=== PATIENT | female | born 2000 | race Caucasian/White ===

== ENCOUNTER 2019-03-18 09:38 | Emergency (ER) | payer MEDICAID, OTHER ==
[~2019-03-18] VITALS: Ht 149.9 cm; Wt 41.9 kg
[~2019-03-18 09:38] MED LIST: NO HOME MEDS
[2019-03-18 12:20] VITALS: BP 127/89
== END 2019-03-18 12:16 | disposition home or self-care (01) ==
LOC: ER 09:39
DX: F41.9 Anxiety disorder, unspecified (principal); F32.9 Major depressive disorder, single episode, unspecified; F17.200 Nicotine dependence, unspecified, uncomplicated; F12.90 Cannabis use, unspecified, uncomplicated
CPT/HCPCS: 93005; 99284

== ENCOUNTER 2023-02-12 18:44 | Inpatient (IN) | payer MEDICAID, OTHER ==
[~2023-02-12] VITALS: Ht 149.9 cm; Wt 45.0 kg
[2023-02-12 22:45] LABS: BASOPHILS # (AUTO) 0.1 X10'3 (0-0.2); BASOPHILS % (AUTO) 0.7 % (0-1); EOSINOPHILS % (AUTO) 0.2 % (0-6); LYMPHOCYTES # (AUTO) 0.4 X10'3 (1.1-4.8); LYMPHOCYTES % (AUTO) 2.2 % (21-51); MEAN PLATELET VOLUME 8.2 FL (7.4-10.4); MONOCYTES # (AUTO) 1.1 X10'3 (0-0.9); MONOCYTES % (AUTO) 6.3 % (2-12); NEUTROPHILS # (AUTO) 16.5 X10'3 (1.8-7.7); NEUTROPHILS % (AUTO) 90.6 % (42-75); PLATELET COUNT 403 X10'3 (140-440); WHITE BLOOD COUNT 18.2 X10'3 (4.5-11.0)
[2023-02-12 22:55] LABS: ALANINE AMINOTRANSFERASE 61 U/L (12-78); ALBUMIN 5.2 G/DL (3.4-5.0); ALBUMIN/GLOBULIN RATIO 1.1 (1.1-1.5); ALKALINE PHOSPHATASE 62 IU/L (46-116); ANION GAP 28 (8-16); ASPARTATE AMINO TRANSFERASE 38 U/L (10-37); BILIRUBIN,TOTAL 1.3 MG/DL (0.1-1.0); BLOOD UREA NITROGEN 30 MG/DL (7-18); BUN/CREATININE RATIO 16.7 (10.0-20.0); CALCIUM 10.3 MG/DL (8.5-10.1); CHLORIDE 88 MMOL/L (99-107); GLUCOSE 251 MG/DL (70-104); LIPASE 204 U/L (16-77); POTASSIUM 4.1 MMOL/L (3.5-5.1); SODIUM 132 MMOL/L (135-145); TOTAL CARBON DIOXIDE 15.8 MMOL/L (24-32); eCRCL 33 ML/MIN; eGFR 35 ML/MIN
[2023-02-12 23:47] LABS: HEMATOCRIT 50.6 % (35.0-45.0); HEMOGLOBIN 17.8 g/dl (12.0-16.0); MEAN CORPUSCULAR VOLUME 89.7 FL (78-98)
[2023-02-12 23:48] LABS: MEAN CORPUSCULAR HEMOGLOBIN 31.5 PG (27.0-31.0); MEAN CORPUSCULAR HGB CONC 35.1 g/dL (33.0-36.5); RED CELL DISTRIBUTION WIDTH 13.1 % (11.5-14.5)
[2023-02-12 23:49] LABS: RED BLOOD COUNT 5.64 X10'6 (4.20-5.60)
[2023-02-12 23:55] LABS: TOTAL CELLS COUNTED 100
[2023-02-12 23:57] LABS: LARGE PLATELETS FEW; TOXIC GRANULATION 1+
[2023-02-13 00:02] LABS: ANISOCYTOSIS 1+; PLATELET ESTIMATE NORMAL; SPHEROCYTES FEW; TEAR DROP CELLS FEW
--- NOTE | 2023-02-13 01:31 | NUR ---
PT REFUSING LOBBY VITALS AT THIS TIME
[2023-02-13] MEDS ORDERED: mag hydrox/Alum hydrox/simeth 30ml oral suspension PO ONE (03:15)
[2023-02-13] MEDS ORDERED: LORazepam 2 mg/ml vial IV ONE (03:15)
[2023-02-13] MEDS ORDERED: metoclopramide 5 mg/ml inj IV ONE (03:15)
[2023-02-13] MEDS ORDERED: HYDROmorphone inj. 0.5 MG/0.5 ML DISP.SYRIN IV ONE (03:15)
[2023-02-13] MEDS ORDERED: normal saline 1000ML IV soln IVB ONE ×2 (03:15)
[2023-02-13] MEDS ORDERED: acetaminophen 325mg tablet PO STA (03:15)
[2023-02-13] MEDS ORDERED: piperacillin/tazo 3.375gm/50ml 50 ML IV ONE ×2 (03:15→04:55)
[2023-02-13 04:21] LABS: HCG SERUM QL NEGATIVE
[2023-02-13 04:22] LABS: APTT 24 SECONDS (22-32); PROTHROMBIN TIME 10.7 SECONDS (9.0-12.0)
[2023-02-13 04:26] LABS: ACETONE SMALL (NEGATIVE)
[2023-02-13 04:34] LABS: PRO BRAIN NATRIURETIC PEPTIDE 316 PG/ML (0-125); THYROID STIMULATING HORMONE 1.41 ulU/ml (0.34-4.50)
[2023-02-13] MEDS ORDERED: pantoprazole 40MG/NS 100ML BAG 100 ML IV ONE (04:35)
[2023-02-13 04:39] LABS: OSMOLALITY 321 MOSM/K (280-300)
[2023-02-13 04:40] LABS: ETHANOL < 10 MG/DL (<10)
--- NOTE | 2023-02-13 07:19 | NUR ---
PT UP TO THE BATHROOM TO GIVE URINE SPECIMEN
[2023-02-13] MEDS ORDERED: mag hydrox/Alum hydrox/simeth 30ml oral suspension PO PRN (07:20)
[2023-02-13] MEDS ORDERED: MESSAGE TO PHARMACY PO ONE (07:20)
[2023-02-13] MEDS ORDERED: HYDROmorphone/PF 0.2 MG/ML SYRINGE IV PRN (07:20)
[2023-02-13] MEDS ORDERED: HYDROmorphone inj. 0.5 MG/0.5 ML DISP.SYRIN IV PRN (07:20)
[2023-02-13] MEDS ORDERED: magnesium hydroxide 30ml (MOM) UD suspension PO PRN (07:20)
[2023-02-13] MEDS ORDERED: proCHLORperazine 10 MG/2 ml inj IV PRN (07:20)
[2023-02-13] MEDS ORDERED: ondansetron/PF 4mg/2ml inj IV PRN (07:20)
[2023-02-13] MEDS ORDERED: magnesium 4gm in 100ml NS 100 ML IV PRN (07:20)
[2023-02-13] MEDS ORDERED: potassium Cl 40MEQ/1/2NS 520ml 520 ML IV PRN (07:20)
[2023-02-13] MEDS ORDERED: glucagon, human recombinant 1mg kit SUBCUT PRN (07:20)
[2023-02-13] MEDS ORDERED: acetaminophen 325mg tablet PO PRN (07:20)
[2023-02-13] MEDS ORDERED: dextrose 50%-water 50ml dispensing syringe IV PRN ×2 (07:20)
[2023-02-13] MEDS ORDERED: magnesium 2GM in 50ml NS 50 ML IV PRN (07:20)
[2023-02-13] MEDS ORDERED: potassium Cl 20 mEq SR tablet PO PRN ×2 (07:20)
[2023-02-13] MEDS ORDERED: DEXTROSE 15 GM of carb/4 tabs (each vial/BOTTLE has 4 tablets) PO PRN ×2 (07:20)
[2023-02-13] MEDS ORDERED: insulin Lispro (HumaLOG) vial - multi-dose SQ SCH (07:20)
--- NOTE | 2023-02-13 07:30 | NUR ---
DR. VANN INFORMED OF INCREASED HR WITH EXERTION AND BG OF 251 FROM [facility]. ORDERED NS BOLUS X 1
[2023-02-13] MEDS ORDERED: normal saline 1000ml 1,000 ML IVB ONE (07:50)
[2023-02-13] MEDS ORDERED: pantoprazole 40MG/NS 100ML BAG 100 ML IV SCH (08:00)
[2023-02-13] MEDS: K and/or MAG REPLACEMENT MC SCH ×2 (08:00→20:00)
[2023-02-13 08:14] LABS: BILIRUBIN,URINE LARGE (Neg); CLARITY,URINE CLOUDY (Clear); COLOR,URINE YELLOW (Yellow); GLUCOSE, URINE 100 mg/dl (Neg); KETONES,URINE >=80 mg/dl (Neg); LEUKOCYTE ESTERASE ,URINE NEGATIVE (Neg); NITRITES, URINE NEGATIVE (Neg); OCCULT BLOOD,URINE SMALL (Neg); PH,URINE 5.5 (4.8-8.0); PROTEIN,URINE 100 mg/dl (Neg); UROBILINOGEN,URINE 0.2 E.U/dL (0.2-1.0)
--- NOTE | 2023-02-13 08:15 | NUR ---
MAG NOT DRAWN. MAG ORDERED FOR AM PER PROTOCOL
[2023-02-13 08:27] LABS: UA COLLECTION TYPE CLN CATCH MIDSTREAM
[2023-02-13 08:28] LABS: HYALINE CASTS >30 /LPF (NEGATIVE); MUCUS STRANDS MODERATE /LPF (Neg); SQUAMOUS EPITHELIAL CELL,UR MANY /LPF (FEW)
[2023-02-13 08:29] LABS: BACTERIA,URINE 2+ /HPF (Neg); URINE AMPHETAMINE SCREEN NEGATIVE (Neg); URINE BARBITUATE SCREEN NEGATIVE (Neg); URINE BENZODIAZEPINES SCREEN NEGATIVE (Neg); URINE CANNABINOID SCREEN POSITIVE (Neg); URINE COCAINE SCREEN NEGATIVE (Neg); URINE METHADONE SCREEN NEGATIVE (Neg); URINE OPIATE SCREEN NEGATIVE (Neg); URINE PHENCYCLIDINE SCREEN NEGATIVE (Neg)
[2023-02-13 08:31] LABS: RBC,URINE 0-2 /HPF (0-2); WBC,URINE 0-4 /HPF (0-4)
[2023-02-13] MEDS: docusate sod 100mg capsule PO SCH ×2 (08:58→20:00)
[2023-02-13] MEDS: normal saline 1000ml 1,000 ML IV SCH ×2 (08:59→19:13)
[2023-02-13 09:03] LABS: BASOPHILS % (AUTO) 0.2 % (0-1); EOSINOPHILS % (AUTO) 0 % (0-6); HEMATOCRIT 36.6 % (35.0-45.0); HEMOGLOBIN 12.9 g/dl (12.0-16.0); LYMPHOCYTES # (AUTO) 0.6 X10'3 (1.1-4.8); LYMPHOCYTES % (AUTO) 4.6 % (21-51); MEAN CORPUSCULAR HEMOGLOBIN 31.6 PG (27.0-31.0); MEAN CORPUSCULAR HGB CONC 35.3 g/dL (33.0-36.5); MEAN CORPUSCULAR VOLUME 89.5 FL (78-98); MEAN PLATELET VOLUME 8.2 FL (7.4-10.4); MONOCYTES # (AUTO) 1.6 X10'3 (0-0.9); MONOCYTES % (AUTO) 11.7 % (2-12); NEUTROPHILS # (AUTO) 11.3 X10'3 (1.8-7.7); NEUTROPHILS % (AUTO) 83.5 % (42-75); PLATELET COUNT 289 X10'3 (140-440); RED BLOOD COUNT 4.08 X10'6 (4.20-5.60); RED CELL DISTRIBUTION WIDTH 12.9 % (11.5-14.5); WHITE BLOOD COUNT 13.6 X10'3 (4.5-11.0)
[2023-02-13 09:29] LABS: ALANINE AMINOTRANSFERASE 41 U/L (12-78); ALBUMIN 3.4 G/DL (3.4-5.0); ALBUMIN/GLOBULIN RATIO 1.1 (1.1-1.5); ALKALINE PHOSPHATASE 38 IU/L (46-116); ANION GAP 11 (8-16); ASPARTATE AMINO TRANSFERASE 18 U/L (10-37); BILIRUBIN,TOTAL 0.9 MG/DL (0.1-1.0); BLOOD UREA NITROGEN 29 MG/DL (7-18); CALCIUM 7.9 MG/DL (8.5-10.1); CHLORIDE 104 MMOL/L (99-107); CREATININE 1.16 MG/DL (0.40-0.90); GLUCOSE 202 MG/DL (70-104); HEMOGLOBIN A1C 4.6 % (4.5-6.2); MAGNESIUM 2.1 MG/DL (1.5-2.4); POTASSIUM 3.7 MMOL/L (3.5-5.1); SODIUM 138 MMOL/L (135-145); TOTAL CARBON DIOXIDE 22.6 MMOL/L (24-32); TOTAL PROTEIN 6.4 G/DL (6.4-8.2); eCRCL 51 ML/MIN; eGFR 57 ML/MIN
--- NOTE | 2023-02-13 12:07 | NUR ---
pt resting, visitor at bedside.
--- NOTE | 2023-02-13 14:15 | NUR ---
PT C/O HEARTBURN. PT MEDICATED WITH MAALOX ORDERED.
[2023-02-13] MEDS ORDERED: HYDR-3686 PO (14:25)
[2023-02-13] MEDS ORDERED: ONDA8TAB13 PO (14:25)
--- NOTE | 2023-02-13 14:59 | NUR ---
PT RESTING, AWAKES EASILY. VISITOR AT BEDSIDE PT RESTING, AWAKES EASILY. VISITOR AT BEDSIDE.
--- NOTE | 2023-02-13 16:36 | NUR ---
pt resting in no apparent distress. visitor at bedside
[2023-02-13] MEDS: insulin glargine (Lantus) pen - multi-dose SQ SCH (20:35)
[2023-02-13] MEDS ORDERED: pantoprazole 40mg Tablet.DR PO ONE (20:45)
[2023-02-14] MEDS: normal saline 1000ml 1,000 ML IV SCH ×2 (03:17→10:22)
[2023-02-14] MEDS ORDERED: hydrOXYzine 25 MG tablet PO PRN (07:40)
[2023-02-14] MEDS: docusate sod 100mg capsule PO SCH ×2 (08:00→19:21)
[2023-02-14] MEDS: K and/or MAG REPLACEMENT MC SCH ×2 (08:00→19:51)
--- NOTE | 2023-02-14 08:25 | NUR ---
Patient in room ORTHO 4024. I have received report from josselyn ware in er and had the opportunity to ask questions and assume patient care.
[2023-02-14] MEDS ORDERED: ondansetron 4mg rapidly disintigrating tab PO PRN (08:45)
[2023-02-14 09:00] VITALS: BP 121/80; PULSE 79; RESP 15; TEMP 98.2; O2SAT 100
[2023-02-14 10:03] LABS: BASOPHILS % (AUTO) 0.2 % (0-1); EOSINOPHILS # (AUTO) 0.1 X10'3 (0-0.9); EOSINOPHILS % (AUTO) 1.1 % (0-6); HEMATOCRIT 32.4 % (35.0-45.0); HEMOGLOBIN 11.5 g/dl (12.0-16.0); LYMPHOCYTES # (AUTO) 1.5 X10'3 (1.1-4.8); LYMPHOCYTES % (AUTO) 18.7 % (21-51); MEAN CORPUSCULAR HEMOGLOBIN 32.4 PG (27.0-31.0); MEAN CORPUSCULAR HGB CONC 35.6 g/dL (33.0-36.5); MEAN PLATELET VOLUME 8.4 FL (7.4-10.4); MONOCYTES # (AUTO) 0.7 X10'3 (0-0.9); MONOCYTES % (AUTO) 8.6 % (2-12); NEUTROPHILS # (AUTO) 5.8 X10'3 (1.8-7.7); NEUTROPHILS % (AUTO) 71.4 % (42-75); PLATELET COUNT 190 X10'3 (140-440); RED BLOOD COUNT 3.56 X10'6 (4.20-5.60); RED CELL DISTRIBUTION WIDTH 12.5 % (11.5-14.5); WHITE BLOOD COUNT 8.1 X10'3 (4.5-11.0)
[2023-02-14 10:25] LABS: ALANINE AMINOTRANSFERASE 39 U/L (12-78); ALBUMIN 3.2 G/DL (3.4-5.0); ALBUMIN/GLOBULIN RATIO 1.1 (1.1-1.5); ALKALINE PHOSPHATASE 33 IU/L (46-116); ANION GAP 10 (8-16); ASPARTATE AMINO TRANSFERASE 34 U/L (10-37); BILIRUBIN,TOTAL 0.9 MG/DL (0.1-1.0); BLOOD UREA NITROGEN 10 MG/DL (7-18); BUN/CREATININE RATIO 24.4 (10.0-20.0); CALCIUM 8.3 MG/DL (8.5-10.1); CHLORIDE 103 MMOL/L (99-107); CREATININE 0.41 MG/DL (0.40-0.90); GLUCOSE 91 MG/DL (70-104); LIPASE 110 U/L (16-77); MAGNESIUM 2.2 MG/DL (1.5-2.4); SODIUM 138 MMOL/L (135-145); TOTAL CARBON DIOXIDE 25.3 MMOL/L (24-32); eCRCL 144 ML/MIN; eGFR > 90 ML/MIN
[2023-02-14 10:31] LABS: POTASSIUM 2.9 MMOL/L (3.5-5.1)
--- NOTE | 2023-02-14 10:48 | NUR ---
Page Sent PAGER ID: [phone] MESSAGE: [id number] [place] pt has a critical k of 2.9. can i replace this per protocol remigio key? dulce [id number]
--- NOTE | 2023-02-14 10:55 | NUR ---
per md, replace pt with one bag of k per protocol and the rest can be oral.
[2023-02-14] MEDS ORDERED: nicotine 21mg patch - 24 hr TD SCH (11:55)
[2023-02-14] MEDS ORDERED: potassium Cl 20 mEq SR tablet PO STA (12:03)
--- NOTE | 2023-02-14 12:11 | NUR ---
per md po 40 meq k can be given an hour after the iv k finishes.
[2023-02-14 13:30] VITALS: RESP 18; O2SAT 100
--- NOTE | 2023-02-14 17:32 | NUR ---
Page Sent PAGER ID: [phone] MESSAGE: [id number] [facility] pt is wondering if she can have tylenol or ibuprofen. dulce [id number]
[2023-02-14 18:00] VITALS: BP 128/86; PULSE 83; RESP 18; TEMP 98.6; O2SAT 100
--- NOTE | 2023-02-14 18:15 | NUR ---
Patient in room ORTHO 4024. I have received report from JOSEPH Quintanilla and had the opportunity to ask questions and assume patient care.
[2023-02-14] MEDS ORDERED: acetaminophen 325mg tablet PO PRN (18:25)
--- NOTE | 2023-02-14 19:03 | NUR ---
Problems reprioritized. Patient report given, questions answered & plan of care reviewed with yolanda ware.
[2023-02-14 20:00] VITALS: RESP 18; O2SAT 98
[2023-02-14] MEDS: insulin glargine (Lantus) pen - multi-dose SQ SCH (21:00)
--- NOTE | 2023-02-14 22:13 | NUR ---
Pt. decided to leave AMA.She was super anxious ,her boyfriend was letting in prior to bring her staff that she needed .I explained to the pt. because of her K 2.9 is good for her to stay overnight .K+ blood work was order for 2199 ,she refused to be drawn .Dr. Feng is notified so as my charge loader.She sigh her paper work ,I took her I.V off ,she dressed and left at 2210.
== END 2023-02-14 22:10 | disposition left against medical advice (07) | DRG 720 ==
LOC: ER 18:45 → ED HOLD 02-13 07:28 → EDBEDREQ 02-14 03:13 → ORTHO 4S 02-14 08:21
PROVIDERS: ADMIT Family Medicine; ATTEND Family Medicine
PROC: BW211ZZ Computerized Tomography (CT Scan) of Abdomen and Pelvis using Low Osmolar Contrast (ICD-10-PCS; principal; 2023-02-13)
DX: A41.9 Sepsis, unspecified organism (principal); N17.0 Acute kidney failure with tubular necrosis; E87.21 Acute metabolic acidosis; K85.90 Acute pancreatitis without necrosis or infection, unspecified; Z53.29 Procedure and treatment not carried out because of patient's decision for other reasons; E11.65 Type 2 diabetes mellitus with hyperglycemia; E86.0 Dehydration; E87.6 Hypokalemia; K52.9 Noninfective gastroenteritis and colitis, unspecified; Z83.3 Family history of diabetes mellitus; Z72.0 Tobacco use; Z91.148 Patient's other noncompliance with medication regimen for other reason; Z71.6 Tobacco abuse counseling
CPT/HCPCS: 36415; 71045; 74176; 80053; 80305; 80320; 81001; 82009; 82948; 83036; 83605; 83690; 83735; 83880; 83930; 84145; 84443; 84484; 84703; 85007; 85025; 85610; 85651; 85730; 87040; 87081; 93005; 96365; 96375; 99285; A6258; C9113; G0378; J1815; J2060; J2543; J2765; J3480; J7030

== ENCOUNTER 2024-11-17 15:22 | Outpatient (CLI) | payer MEDICAID ==
[~2024-11-17 15:22] MED LIST changes: +HYDR-3686 PO; -NO HOME MEDS; +ONDA-245 PO
--- NOTE | 2024-11-17 17:24 | RADIOLOGY REPORT ---
Exam: CT CT ABDOMEN History: ABDOMINAL PAIN Comparison Study: CT CT ABDOMEN PELVIS on DOS: 02/13/23 Technique: Multidetector spiral CT of the abdomen was performed from lung bases to iliac crest. Imag ing was performed without IV contrast. Axial, coronal and sagittal multiplanar reformats were obtain ed from the axial data set by the technologist. Radiation dose : CT Dose: CTDI volume is 5 mGy. Dose-length product is 153 mGy*cm Findings: Evaluation of solid organs is limited due to lack of intravenous contrast use. Lung Bases: No acute or significant lung base finding. Normal heart size. No pleural or pericardial effusion. Liver: Diffuse hepatic steatosis. Gallbladder and biliary Tree: Sludge in the gallbladder. Spleen: Unremarkable Pancreas: The pancreas is grossly normal in appearance. Adrenal Glands: Unremarkable Kidneys: Kidneys are grossly normal without calculi or hydronephrosis. Visualized Bowel: The stomach is grossly normal in appearance. Small bowel and colon are normal in ca liber and distribution. Ascites: Absent Lymphadenopathy: No mesenteric, retroperitoneal or periportal lymphadenopathy. Abdominal wall and Mesentery: Unremarkable. Vasculature: The visualized abdominal aorta is normal in size and caliber. Evaluation of abdominal a nd pelvic vessels is limited due to lack of intravenous contrast. Musculoskeletal: No aggressive focal bony lesions, acute fractures or dislocation. IMPRESSION: 1. No acute abdominal finding. Diffuse hepatic steatosis. Sludge in the gallbladder. Radiation optimization: All CT scans at this facility use at least one of these dose optimization rikki hniques: Automated exposure control mA and/or kV adjustment per patient size (includes targeted exams where dose is matched to clinical indication) or iterative reconstruction. HS:Y
== END 2024-11-17 23:59 | disposition home or self-care (01) ==
LOC: RAD 15:22
PROVIDERS: ATTEND Family Medicine
DX: K76.0 Fatty (change of) liver, not elsewhere classified (principal); N32.89 Other specified disorders of bladder; R10.9 Unspecified abdominal pain
CPT/HCPCS: 74150